=== PATIENT | female | born 1935 | race Caucasian/White ===

== ENCOUNTER → 2021-01-10 | Outpatient (CLI) | payer MEDICARE, OTHER | LOC: NM 09:55 | DX: M86.9 Osteomyelitis, unspecified (principal); L97.519 Non-pressure chronic ulcer of other part of right foot with unspecified severity; I73.9 Peripheral vascular disease, unspecified; L03.115 Cellulitis of right lower limb | CPT/HCPCS: 78315; 93926; A9503 ==

== ENCOUNTER → 2022-03-22 | Day surgery (SDC) | payer MEDICARE, OTHER ==
[~2022-03-22] MED LIST: DEXILANT60 MG PO; ELIQUIS2.5 MG PO; KLOR-CON 1010 MEQ PO; LINZESS72 MCG PO; LISINOPRIL40 MG PO; NAMENDA 5 MG TAB5 MG PO; PACERONE100 MG PO; PREVAGEN PO; PROCARDIA XL60 MG PO; TOPROL XL 50 MG50 MG PO
== END | disposition home or self-care (01) ==
LOC: OR 08:20
DX: K22.4 Dyskinesia of esophagus (principal); K22.2 Esophageal obstruction; I48.91 Unspecified atrial fibrillation; I10 Essential (primary) hypertension; R63.6 Underweight; Z68.1 Body mass index [BMI] 19.9 or less, adult; Z88.2 Allergy status to sulfonamides; Z79.01 Long term (current) use of anticoagulants
CPT/HCPCS: J2704; J7040